=== PATIENT | female | born 1960 | race Caucasian/White ===

== ENCOUNTER 2023-05-21 12:54 | Outpatient (REF) | payer MEDICAID, SELFPAY ==
--- NOTE | ~2023-05-21 | US_ITS ---
EXAMINATION: MM DIAGNOSTIC DIGITAL BREAST TOMOSYNTHESIS, BILATERAL US BREAST LIMITED, LEFT MAMMOGRAPHY: CLINICAL INFORMATION: 62-year-old female, complaining of palpable abnormality LEFT breast approximately 1 inch below nipple. Remote history of benign biopsy left breast. COMPARISON: Mammography: 03/26/2022, 03/22/2021, 06/28/2019, 08/01/2017, and 02/26/2016 ([facility]); 03/15/2021 ([facility]). TECHNIQUE: Digital breast tomosynthesis is performed in both the craniocaudal and mediolateral oblique views along with computer-aided detection (CAD). Synthesized 2D images are generated from the tomosynthesis. FINDINGS: There are scattered areas of fibroglandular density (ACR BI-RADS breast composition Category b). Bilateral retroareolar densities are stable from 2018, and presumably represent duct ectasia. There are no suspicious masses, suspicious grouped calcifications, or areas of architectural distortion in either breast. The parenchymal pattern is stable from prior exams. No skin or axillary abnormality. Area of palpable concern 6:00 to 7:00 axis left breast has been marked by a BB by the technologist with the aid of the patient. There is no underlying mammographic abnormality to correlate with the palpable focus. ULTRASOUND: CLINICAL INFORMATION: Palpable abnormality left breast 1 inch below nipple, 6-7 o'clock axis. COMPARISON: 03/05/2016 left breast ultrasound ([facility]). TECHNIQUE: Targeted left breast sonographic evaluation was performed using a high frequency linear transducer. Attention was given to the 3:00 to the 7:00 axis, and retroareolar region, covering the area of palpable concern. Selected archived documentation. FINDINGS: Both myself and the technologist scanned. LEFT BREAST: There is a mixture of fatty and fibroglandular tissue. No suspicious mass is seen. There is no pathologic acoustic shadowing. There is no cystic abnormality. Previously seen cyst in the 12:00 axis is no longer seen. 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 There is no ultrasonographic abnormality in the region of palpable concern approximately 1 inch below the nipple, nor spanning the 3:00 to 7:00 axes. US/US breast LT limited mamm only IMPRESSION: There is no finding in either breast suspicious for malignancy. The palpable focus of concern in the inferior left breast shows no ultrasonographic or mammographic correlate. Recommend clinical management. 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 OVERALL ASSESSMENT: Mammography: BI-RADS 2 - Benign Findings Ultrasound: BI-RADS 2 - Benign Findings RECOMMENDATION: 1. Patient should be managed based on the clinical impression. Decision to proceed with biopsy should be based on clinical grounds and degree of clinical concern. 2. Otherwise, routine annual screening mammography. Results were discussed with the patient at time of visit. This patient's information was entered into a reminder system with a target due date for their next mammogram.
== END 2023-05-21 12:55 | disposition home or self-care (01) ==
LOC: HO.MAMMO 12:54
PROVIDERS: PCP Hospitalist; Visit Provider Hospitalist
DX: N63.25 Unspecified lump in the left breast, overlapping quadrants (principal)
CPT/HCPCS: 76642; 77062; 77066

== ENCOUNTER → 2023-05-21 13:30 | Outpatient (BNV) | payer MEDICAID, SELFPAY | PROVIDERS: PCP Hospitalist; Visit Provider Radiology Diagnostic Radiology | DX: N63.25 Unspecified lump in the left breast, overlapping quadrants (principal) | CPT/HCPCS: 76642; 77062; 77066 ==

== ENCOUNTER 2024-11-08 13:54 | Outpatient (REF) | payer OTHER, SELFPAY ==
--- OUTSIDE RECORDS SUMMARY | 2024-11-08 14:38 | XMS_ITS | Encounter Summary ---
Author Organization [facility] Address [facility] [address] [place] [phone] Phone Care Team Providers Care Explosive Operator Grenade Name Role Phone Dane Stark MD Primary Care Provider Elda Copeland CNM Unavailable [phone] Le Arredondo HYDROELECTRIC STATION OPERATOR CHIEF Unavailable [phone] Zeke Dee MD Unavailable Mary Alice Webb MD Unavailable Becky Novoa MD Unavailable [phone] Arjun Winters MD Unavailable [phone] Ruthie Kwan NP Primary Care Provider [phone] Wilson Benavidez DO Primary Care Provider Encounter Details Date Type Department Care Team (Late st Contact Info) Description 07/30/2017 Ancillary Orders [facility] External Provider Virtual Department [address] [place] [address] Heidi Goodson, OTR DRIVER [address] [place] [address] [email or web address] Breast screening Social History Tobacco Use Types Packs/Day Years Used Date Smoking Tobacco: Former Smokeless Tobacco: Never Alcohol Use Standard Drinks/Week Comments No 0 (1 standard drink = 0.6 oz pur e alcohol) Comments Unknown Sex and Gender Information Value Date Recorded Sex Assigned at Female 09/11/2019 9:28 AM EDT Legal Sex Female 9:47 PM EDT Gender Identity Not on file Sexual Orientation Choose not to disclose 2019 9:26 AM EDT documented as of this encounter Plan of Treatment Not on file documented as of this encounter Results * BI MAMMOGRAM SCREENING WITH TOMOSYNTHESIS WITH CAD (BILATERAL) (08/01/2017 3:18 PM EDT) Anatomical Region Laterality Modality Breast Left, Breast Right, Breast Bilateral Bila teral Mammography 08/02/2017 8:20 PM EDT Impressions 08/02/2017 8:24 PM EDT No findings suspicious for malignancy are identified. In the absence of a worrisome palpable abnormality, annual screening mammography is recommended. BI-RADS CATEGORY: 2 - Benign finding. DENSITY: There are scattered fibroglandular densities. POS [id number] Narrative 08/02/2017 8:24 PM EDT COMPARISON: 03/02/2007 through 02/26/2016 Bilateral 3-D tomosynthesis with 2-D reconstructions in the CC and MLO projection. Computer-aided detection system also utilized. No new mass, asymmetry, architectural distortion or suspicious calcifications have become apparent on either side. A few scattered punctate calcifications bilaterally are unchanged as are small nodular densities in the subareolar left breast. Procedure Note Jose A Mullins MD - 08/02/2017 COMPARISON: 03/02/2007 through 02/26/2016 Bilateral 3-D tomosynthesis with 2-D reconstructions in the CC and MLOprojection. Computer-aided detection system also utilized. No new mass, asymmetry, architectural distortion or suspiciouscalcifications have become apparent on either side. A few scattered punctate calcifications bilaterally are unchanged as aresmall nodular densities in the subareolar left breast. IMPRESSION: No findings suspicious for malignancy are identified. In the absence of aworrisome palpable abnormality, annual screening mammography isrecommended. BI-RADS CATEGORY: 2 - Benign finding. DENSITY: There are scattered fibroglandular densities. POS CDHMAM2 Heidi Goodson OTR DRIVER IMG MG EXAMS Final Result documented in this encounter Visit Diagnoses Diagnosis Breast screening Breast screening, unspecified Breast screening Breast screening, unspecified documented in this encounter Care Teams Explosive Operator Grenade Relationship Specialty Start Date End Date Dane Stark MD [address] [place] [address] [email or web address] PCP - General 01/27/17 03/11/21 Ruthie Kwan, ADRIANNA [address], [address] [place] [address] PCP - General Family Medicine 03/12/21 03/25/22 Wilson Benavidez DO [address] [place] [address], [address] [place] [address] [email or web address] PCP - General Internal Medicine 03/26/22 Elda Copeland CNM [address] [place] [address] Historical LMR Provider 02/01/17 2 Le Arredondo HYDROELECTRIC STATION OPERATOR CHIEF [address] [place] [address] [email or web address] Historical LMR Provider 02/01/17 04/21/21 Zeke Dee MD [address] [address] [email or web address] Historical LMR Provider 02/01/17 2 Mary Alice Webb MD [address] [place] [address] [email or web address] Historical LMR Provider 02/01/17 Beck[facility] [place] [address] Historical LMR Provider 02/01/17 2 Arjun Winters MD [address] [place] [id number] [email or web address] Historical LMR Provider 02/01/17 04/21/21 documented as of this encounter Additional Source Comments The information contained in this document represents components of the legal health record. It is not the complete legal health record.[facility]
--- OUTSIDE RECORDS SUMMARY | 2024-11-08 14:39 | XMS_ITS | Data Portability ---
Author Organization [place] - [facility] - Start Up, MAIN OFFICE Address [address] [place] [id number] Assessment Encounter Date Assessment Date Assessment LastModified by Organization Details LastModified Time 08/08/2022 08/08/2022 Spent 20 minutes for evaluation and management, including face to face interaction, review of labs and notes from specialist, discussion and coordination of care. Not available 08/08/2022 13:30:47 08/27/2022 08/27/2022 Spent 25 minutes for evaluation and management, including face to face interaction, review of labs and notes from specialist, discussion and coordination of care. Not available 08/27/2022 12:14:46 05/02/2023 05/02/2023 Spent 60 minutes for evaluation and management, including face to face interaction, review of labs and notes from specialist, discussion and coordination of care. Not available 05/05/2023 14:03:03 12/11/2023 12/11/2023 Spent 25 minutes for evaluation and management, including face to face interaction, review of labs and notes from specialist, discussion and coordination of care. Not available 12/11/2023 13:05:18 04/19/2024 04/19/2024 Spent 45 minutes for evaluation and management, including face to face interaction, review of labs and notes from specialist, discussion and coordination of care. Not available 04/19/2024 12:20:13 Plan of Treatment Reminders Order Date Submit Date Provider Last Modified By Organization Details Last Modified Time Details Appointments None recorded. Lab CBC w/ auto diff 2023 024 MASON [facility] (Centralized Electronic Ordering - All Locations), Patient Can Go To The Location Of Their Choice, 4 14:46:06 CMP, serum or plasma 2023 024 MASON [facility] (Centralized Electronic Ordering - All Locations), Patient Can Go To The Location Of Their Choice, 4 15:30:32 TSH, serum or plasma 2023 024 MASON [facility] (Centralized Electronic Ordering - All Locations), Patient Can Go To The Location Of Their Choice, 4 15:41:13 lipid panel, blood 2023 024 MASON [facility] (Centralized Electronic Ordering - All Locations), Patient Can Go To The Location Of Their Choice, 4 15:30:33 fecal occult blood, stool 2023 024 MASON [facility] (Centralized Electronic Ordering - All Locations), Patient Can Go To The Location Of Their Choice, 09:36:35 Referral vascular surgeon referral - Former smoker smoker from age 14 to age 33 but has not smoked for 30 years now H/o ETOH abuse has been sober since 2021 H/o Raynaud which was managed on low dose Amlodapine. 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 Needs to see derm and have the inclusion sac removed 2023 024 MASON Nichols MD, [address], [place], [address], 5 05:02:20 otolaryngol ogist referral - Vertigo and tinnitus since 2017 Since 2017 has had vertigo since 2017 But now it is worse in the past 6 months. Has had Tinnitus since then as well No hearing loss. Feels more heaviness on the L Has had h/o migraines When vertigo happens she tries to keep her eyes in one spot and it resolves. Takes OTC Dramamine as needed. Never had it worked up. 2023 024 [facility], [address] [facility], [place], [address], 4 05:01:30 Procedures None recorded. Surgeries None recorded. Imaging US, breast - New Left breast lump 2023 024 [facility], [address] [place] [address], [id number], 4 05:01:28 MAMMO, diagnostic, digital, bilateral - New L breast lump noted during annual exam 2023 024 [facility], [address] [place] [address], [id number], 4 05:01:28 MAMMO, diagnostic, digital, bilateral - 3x1 cm in L breast noted during annual exam Has had h/o cysts in the past No fhx of breast cancer 2023 024 [facility], [address] [place] [address], [address], 4 05:01:28 Medication Orders nifedipine ER 30 mg tablet,exte nded release 2024 025 [facility]/Pharmacy #2024, [address] [place], [address], 5 12:21:46 oxycodone 5 mg tablet 2024 025 [facility]/Pharmacy #2024, [address] [place], [address], 5 12:21:50 nifedipine ER 30 mg tablet,exte nded release 2024 025 srastegar 1 [facility]/Pharmacy #2024, [address] [place], [address], 5 10:50:10 Silvadene 1 % topical cream 2024 025 [facility]/Pharmacy #2024, [address] [place], [address], 5 12:29:13 mupirocin 2 % topical ointment 2023 024 [facility]/Pharmacy #2024, [address] [place], [address], 4 13:07:56 Debrox 6.5 % ear drops 2023 024 [facility]/Pharmacy #2024, [address] [place], [address], 4 11:38:16 Prozac 10 mg capsule 2022 023 [facility]/Pharmacy #2024, [address] [place], [address], 3 13:47:59 Patient TargetsNo targets recorded. Patient Instructions Encounter Date Encounter Id Patient Instructions Last Modified By Organization Details Last Modified Time 05/02/2023 [id number] breast lumps: care instructions Not available 05/05/2023 14:04:59 Patient Health Questionnaire-9* - scored 4 MASON Not available 05/02/2024 05:01:01 Reason for Referral [employer] Feeder Referral fo r Vertigo Vertigo and tinnitus since 2017Since 2017 has had vertigo since 2017But now it is worse in the past 6 months.Has had Tinnitus since then as wellNo hearing loss.Feels more heaviness on the LHas had h/o migraines When vertigo happens she tries to keep her eyes in one spot and it resolves.Takes OTC Dramamine as needed. Never had it worked up. 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 has had a brown spot for years now has a pearly flaky center for the past 2 weeksNo change with lotion applicationShe hit it on the car door and now has bruise around itWill refer to derm for possible BCCAlso Has had a bump on mons pubis for 2-3 monthswas draining some thick whitish dischargeMost likely dermoid cyst.Needs to see derm and have the inclusion sac removed Referring Physician: Wilson Benavidez, Internal Medicine, Encounter Date: 12/11/2023 Vascular Surgeon Referral fo r 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 Referring Physician: Wilson Benavidez, Internal Medicine, Encounter Date: 04/19/2024 Results Created Date Observation Date Name Description Value Unit Range Abnormal Flag Note LastModifiedBy Organization Detail LastModifiedTime 05/09/19 24 05/09/2023 FECAL OCCUL T BLOOD , IMMUN OCHEM ICAL results Test Cance lled, food service order clerk error Not Available [facility] (Centralized Electronic Ordering - All Locations) Patient Can Go To The Location Of Their Choice, 05/09/2023 09:36:35 05/09/1905/09/2023 COMPL ETE CBC WITH DIFF WBC 4.5 K/mm3 (4.0-1 1.0) Not Available [facility] (Centralized Electronic Ordering - All Locations) Patient Can Go To The Location Of Their Choice, 05/09/2023 14:46:06 05/09/1905/09/2023 COMPL ETE CBC WITH DIFF RBC 4.06 M/mm3 (4.20- 5.40) low Not Available [facility] (Centralized Electronic Ordering - All Locations) Patient Can Go To The Location Of Their Choice, 05/09/2023 14:46:05/09/1905/09/2023 COMPL ETE CBC WITH DIFF HGB 12.2 gm/dL (11.7- 15.5) Not Available [facility] (Centralized Electronic Ordering - All Locations) Patient Can Go To The Location Of Their Choice, 05/09/2023 14:46:06 05/09/1905/09/2023 COMPL ETE CBC WITH DIFF HCT 37.7 % (35.7- 45.8) Not Available [facility] (Centralized Electronic Ordering - All Locations) Patient Can Go To The Location Of Their Choice, 05/09/2023 14:46:06 05/09/1905/09/2023 COMPL ETE CBC WITH DIFF MCV 92.9 fL (80.0- 100.0) Not Available [facility] (Centralized Electronic Ordering - All Locations) Patient Can Go To The Location Of Their Choice, 05/09/2023 14:46:06 05/09/1905/09/2023 COMPL ETE CBC WITH DIFF MCH 30.0 pg (27.0- 34.0) Not Available [facility] (Centralized Electronic Ordering - All Locations) Patient Can Go To The Location Of Their Choice, 05/09/2023 14:46:06 05/09/1905/09/2023 COMPL ETE CBC WITH DIFF MCHC 32.4 g/dL (33.0- 37.0) low Not Available [facility] (Centralized Electronic Ordering - All Locations) Patient Can Go To The Location Of Their Choice, 05/09/2023 14:46:05/09/1905/09/2023 COMPL ETE CBC WITH DIFF plt 293 K/mm3 (150-4 60) Not Available [facility] (Centralized Electronic Ordering - All Locations) Patient Can Go To The Location Of Their Choice, 05/09/2023 14:46:05/09/1905/09/2023 COMPL ETE CBC WITH DIFF RDW-SD 42.2 fL (<47.0 ) Not Available [facility] (Centralized Electronic Ordering - All Locations) Patient Can Go To The Location Of Their Choice, 05/09/2023 14:46:05/09/1905/09/2023 COMPL ETE CBC WITH DIFF MPV 10.3 fL (9.4-1 2.4) Not Available [facility] (Centralized Electronic Ordering - All Locations) Patient Can Go To The Location Of Their Choice, 05/09/2023 14:46:05/09/1905/09/2023 COMPL ETE CBC WITH DIFF automated NRBC 0.0 #/100 _WBC' s Not Available [facility] (Centralized Electronic Ordering - All Locations) Patient Can Go To The Location Of Their Choice, 05/09/2023 14:46:05/09/1905/09/2023 COMPL ETE CBC WITH DIFF abs. NRBC 0.0 K/mm3 Not Available [facility] (Centralized Electronic Ordering - All Locations) Patient Can Go To The Location Of Their Choice, 05/09/2023 14:46:05/09/1905/09/2023 COMPL ETE CBC WITH DIFF neut # 2.2 K/mm3 (1.3-7 .0) Not Available [facility] (Centralized Electronic Ordering - All Locations) Patient Can Go To The Location Of Their Choice, 05/09/2023 14:46:05/09/1905/09/2023 COMPL ETE CBC WITH DIFF lymph # 2.0 K/mm3 (0.8-3 .1) Not Available [facility] (Centralized Electronic Ordering - All Locations) Patient Can Go To The Location Of Their Choice, 05/09/2023 14:46:06 05/09/19 24 05/09/2023 COMPL ETE CBC WITH DIFF mono# 0.2 K/mm3 (0.4-0 .9) low Not Available [facility] (Centralized Electronic Ordering - All Locations) Patient Can Go To The Location Of Their Choice, 05/09/2023 14:46:06 05/09/19 24 05/09/2023 COMPL ETE CBC WITH DIFF eo # 0.0 K/mm3 (0.0-0 .4) Not Available [facility] (Centralized Electronic Ordering - All Locations) Patient Can Go To The Location Of Their Choice, 05/09/2023 14:46:05/09/1905/09/2023 COMPL ETE CBC WITH DIFF baso # 0.0 K/mm3 (0.0-0 .1) Not Available [facility] (Centralized Electronic Ordering - All Locations) Patient Can Go To The Location Of Their Choice, 05/09/2023 14:46:05/09/1905/09/2023 COMPL ETE CBC WITH DIFF abs. imm gran 0.0 K/mm3 Not Available [facility] (Central[facility] Ordering - All Locations) Patient Can Go To The Location Of Their Choice, 05/09/2023 14:46:05/09/19 24 05/09/2023 COMPL ETE CBC WITH DIFF neut 49.4 % (44-76 ) Not Available [facility] (Centralized Electronic Ordering - All Locations) Patient Can Go To The Location Of Their Choice, 05/09/2023 14:46:05/09/1905/09/2023 COMPL ETE CBC WITH DIFF lymph 43.7 % (15-43 ) high Not Available [facility] (Centralized Electronic Ordering - All Locations) Patient Can Go To The Location Of Their Choice, 05/09/2023 14:46:05/09/1905/09/2023 COMPL ETE CBC WITH DIFF monocyte 5.1 % (4.5-1 0.5) Not Available [facility] (Centralized Electronic Ordering - All Locations) Patient Can Go To The Location Of Their Choice, 05/09/2023 14:46:05/09/1905/09/2023 COMPL ETE CBC WITH DIFF eo 0.7 % (0-6) Not Available [facility] (Centralized Electronic Ordering - All Locations) Patient Can Go To The Location Of Their Choice, 05/09/2023 14:46:06 05/09/1905/09/2023 COMPL ETE CBC WITH DIFF baso 0.9 % (0-2) Not Available [facility] (Centralized Electronic Ordering - All Locations) Patient Can Go To The Location Of Their Choice, 05/09/2023 14:46:06 05/09/1905/09/2023 COMPL ETE CBC WITH DIFF imm gran 0.2 % Not Available [facility] (Centralized Electronic Ordering - All Locations) Patient Can Go To The Location Of Their Choice, 05/09/2023 14:46:06 05/09/1905/09/2023 COMPR EHENS REGINE METAB OLIC PANL glucose 87 mg/dL (70-99 ) Not Available [facility] (Centralized Electronic Ordering - All Locations) Patient Can Go To The Location Of Their Choice, 05/09/2023 15:30:32 05/09/19 24 05/09/2023 COMPR EHENS REGINE METAB OLIC PANL BUN 16 mg/dL (8-23) Not Available [facility] (Centralized Electronic Ordering - All Locations) Patient Can Go To The Location Of Their Choice, 05/09/2023 15:30:32 05/09/19 24 05/09/2023 COMPR EHENS REGINE METAB OLIC PANL creatinine 0.9 mg/dL (0.5-1 .0) Not Available [facility] (Centralized Electronic Ordering - All Locations) Patient Can Go To The Location Of Their Choice, 05/09/2023 15:30:32 05/09/1905/09/2023 COMPR EHENS REGINE METAB OLIC PANL sodium 139 mmol/ L (133-1 45) Not Available [facility] (Centralized Electronic Ordering - All Locations) Patient Can Go To The Location Of Their Choice, 05/09/2023 15:30:32 05/09/1905/09/2023 COMPR EHENS REGINE METAB OLIC PANL potassium 4.7 mmol/ L (3.6-5 .2) Not Available [facility] (Centralized Electronic Ordering - All Locations) Patient Can Go To The Location Of Their Choice, 05/09/2023 15:30:32 05/09/1905/09/2023 COMPR EHENS REGINE METAB OLIC PANL chloride 103 mmol/ L (98-10 7) Not Available [facility] (Centralized Electronic Ordering - All Locations) Patient Can Go To The Location Of Their Choice, 05/09/2023 15:30:32 05/09/1905/09/2023 COMPR EHENS REGINE METAB OLIC PANL bicarbonate 28 mmol/ L (22-29 ) Not Available [facility] (Centralized Electronic Ordering - All Locations) Patient Can Go To The Location Of Their Choice, 05/09/2023 15:30:32 05/09/1905/09/2023 COMPR EHENS REGINE METAB OLIC PANL anion gap 8 (4-17) Not Available [facility] (Centralized Electronic Ordering - All Locations) Patient Can Go To The Location Of Their Choice, 05/09/2023 15:30:32 05/09/1905/09/2023 COMPR EHENS REGINE METAB OLIC PANL albumin 4.3 gm/dL (3.4-4 .8) Not Available [facility] (Centralized Electronic Ordering - All Locations) Patient Can Go To The Location Of Their Choice, 05/09/2023 15:30:32 05/09/19 24 05/09/2023 COMPR EHENS REGINE METAB OLIC PANL calcium 9.5 mg/dL (8.6-1 0.5) Not Available [facility] (Centralized Electronic Ordering - All Locations) Patient Can Go To The Location Of Their Choice, 05/09/2023 15:30:32 05/09/1905/09/2023 COMPR EHENS REGINE METAB OLIC PANL bilirubin,to chelita 0.4 mg/dL (0-1.2 ) Not Available [facility] (Centralized Electronic Ordering - All Locations) Patient Can Go To The Location Of Their Choice, 05/09/2023 15:30:32 05/09/19 24 05/09/2023 COMPR EHENS REGINE METAB OLIC PANL total protein 6.8 gm/dL (6.2-8 .2) Not Available [facility] (Centralized Electronic Ordering - All Locations) Patient Can Go To The Location Of Their Choice, 05/09/2023 15:30:32 05/09/1905/09/2023 COMPR EHENS REGINE METAB OLIC PANL Ag ratio 1.7 Not Available [facility] (Centralized Electronic Ordering - All Locations) Patient Can Go To The Location Of Their Choice, 05/09/2023 15:30:32 05/09/19 24 05/09/2023 COMPR EHENS REGINE METAB OLIC PANL AST 20 U/L (0-32) Not Available [facility] (Centralized Electronic Ordering - All Locations) Patient Can Go To The Location Of Their Choice, 05/09/2023 15:30:32 05/09/19 24 05/09/2023 COMPR EHENS REGINE METAB OLIC PANL alk phos 79 U/L (35-10 4) Not Available [facility] (Centralized Electronic Ordering - All Locations) Patient Can Go To The Location Of Their Choice, 05/09/2023 15:30:32 05/09/1905/09/2023 COMPR EHENS REGINE METAB OLIC PANL ALT 21 U/L (0-33) Not Available [facility] (Centralized Electronic Ordering - All Locations) Patient Can Go To The Location Of Their Choice, 05/09/2023 15:30:32 05/09/1905/09/2023 COMPR EHENS REGINE METAB OLIC PANL estimated GFR creatinine 71 mL/mi n/1.7 3_M2 Creat inine based estim ated glome rular filtr ation (eGFR ) in adult s is calcu lated using the Natio nal Kidne y Found ation recom alex d 2020 CKD-E PI equat ion. Estim ates GFR from serum creat inine , age and sex. Not Available [facility] (Centralized Electronic Ordering - All Locations) Patient Can Go To The Location Of Their Choice, 05/09/2023 15:30:32 05/09/1905/09/2023 LIPID PANEL W REFLE X TO DLDL cholesterol, total 231 mg/dL (<200) high Not Available [facility] ([facility] Order[facility] - All Locations) Patient Can Go To The Location Of Their Choice, 05/09/2023 15:30:33 05/09/19 24 05/09/2023 LIPID PANEL W REFLE X TO DLDL triglyceride s 74 mg/dL (<150) Not Available [facility] ([facility]ized [facility] Ordering - All Locations) Patient Can Go To The Location Of Their Choice, 05/09/2023 15:30:33 05/09/19 24 05/09/2023 LIPID PANEL W REFLE X TO DLDL HDL chol 88 mg/dL (>39) Not Available [facility] (Centralized Electronic Ordering - All Locations) Patient Can Go To The Location Of Their Choice, 05/09/2023 15:30:33 05/09/19 24 05/09/2023 LIPID PANEL W REFLE X TO DLDL LDL cholesterol, calculated 128 mg/dL (0-130 ) Not Available [facility] (Centralized Electronic Ordering - All Locations) Patient Can Go To The Location Of Their Choice, 05/09/2023 15:30:33 05/09/1905/09/2023 LIPID PANEL W REFLE X TO DLDL non HDL cholesterol (calc) 143 mg/dL (<160) Not Available [facility] (Centralized Electronic Ordering - All Locations) Patient Can Go To The Location Of Their Choice, 05/09/2023 15:30:33 05/09/1905/09/2023 LIPID PANEL W REFLE X TO DLDL cholesterol/ HDL ratio (calc) 2.6 (<5.0) Refer ence range for child gely have not been well estab meenahe d. Adult refer ence range is equal or less than 5 Not Available [facility] (Centralized Electronic Ordering - All Locations) Patient Can Go To The Location Of Their Choice, 05/09/2023 15:30:33 05/09/1905/09/2023 TSH WITH REFLE X TO FT4 TSH 1.98 uIU/m L (0.4-4 .2) Not Available [facility] (Centralized Electronic Ordering - All Locations) Patient Can Go To The Location Of Their Choice, 05/09/2023 15:41:13 05/13/19 24 05/14/2023 FECAL OCCUL T BLOOD , IMMUN OCHEM ICAL fecal occult blood, immunochem NEGATI VE (neg) Not Available [facility] (Centralized Electronic Ordering - All Locations) Patient Can Go To The Location Of Their Choice, [id number] 05/14/2023 13:05:03 05/21/19 24 05/21/2023 imagi ng/di agnos tic resul t No observ ation record ed. [address] - Outpatient Radiology [address] [place] [address] [place], [id number], 03/02/2024 09:52:09 05/21/19 24 05/21/2023 imagi ng/di agnos tic resul t No observ ation record ed. [address] 30 [facility], [place], [id number], 03/02/2024 09:52:10 Result Notes None recorded. Problems Name Problem SNOMED Code Status Onset Date Resolution Date Notes Provider Name and Address Organization Details Recorded Time Bipolar disorder [id number] Active 022 Wilson Benavidez DO [address] [facility] [address], [place], [address] , [facility] - [facility] 09:08:54 Problem Notes None recorded. Medical Equipment None Reported. Medications Name Sig Start Date Stop Date Status Note LastModified by Organization Details LastModified Time Prescriptio n - Renewal active Not Available Not Available Not Available silver sulfadiazin e 1 % topical cream APPLY A 1/16 INCH (1.5 MM) THICK LAYER TO ENTIRE BURN AREA BY TOPICALRO AKUTAN 2 TIMES PER DAY active Not Available Not Available No t Available prednisone 10 mg tablet TAKE 1 TABLET BY MOUTH EVERY DAY WITH MEALS active Not Available Not Available No t Available citalopram 10 mg tablet TAKE 1 TABLET BY MOUTH EVERY DAY IN THE MORNING 04/19 completed Not Available Not Available Not Available clonazepam 0.5 mg tablet TAKE 1 TABLET BY MOUTH EVERYDAY AT BEDTIME active Not Available Not Available No t Available Seroquel 25 mg tablet Take 1 tablet(s) every day by oral route. 04/19 completed Not Available Not Available Not Available Debrox 6.5 % ear drops INSTILL 5 DROPS INTO AFFECTED EAR(S) BY OTIC ROUTE 2 TIMES PER DAY 2023 active Not Available Not Available Not Avai lable nifedipine ER 30 mg tablet,exte nded release Take 1 tablet(s) every day by oral route. active Not Available Not Available No t Available amlodipine 5 mg tablet TAKE 1 TABLET BY MOUTH EVERY DAY active Not Available Not Available No t Available valacyclovi r 500 mg tablet TAKE 1 TABLET BY MOUTH EVERY DAY active Not Available Not Available No t Available divalproex ER 500 mg tablet,exte nded release 24 hr TAKE 1 TABLET BY MOUTH EVERYDAY AT BEDTIME 04/19 completed Not Available Not Available Not Available bupropion HCl 75 mg tablet TAKE 1 TABLET BY MOUTH EVERY DAY IN THE MORNING 04/19 completed Not Available Not Available Not Available fluoxetine 10 mg capsule TAKE 1 CAPSULE BY MOUTH EVERY MORNING FOR TOTAL DAILY DOSE OF 30 MG active Not Available Not Available No t Available omeprazole 20 mg capsule,del ayed release TAKE 1 CAPSULE BY MOUTH EVERY DAY active Not Available Not Available No t Available mupirocin 2 % topical ointment APPLY A SMALL AMOUNT TO THE AFFECTED AREA BY TOPICAL ROUTE 3 TIMES PER DAY 7-10 DAYS active Not Available Not Available No t Available fluoxetine 20 mg capsule TAKE 1 CAPSULE BY MOUTH EVERY MORNING PART OF A TDD OF 30 MG active Not Available Not Available No t Available oxycodone 5 mg tablet Take 1 tablet 6 times a day by oral route. 2024 active Not Available Not Available Not Avai lable divalproex ER 250 mg tablet,exte nded release 24 hr TAKE 1 TABLET BY MOUTH EVERYDAY AT BEDTIME 04/19 completed Not Available Not Available Not Available bupropion HCl XL 150 mg 24 hr tablet, extended release TAKE 1 TABLET BY MOUTH EVERY DAY IN THE MORNING 04/19 completed Not Available Not Available Not Available quetiapine 50 mg tablet TAKE 1 TABLET BY MOUTH EVERY DAY 04/19 completed Not Available Not Available Not Available Pristiq 50 mg tablet,exte nded release TAKE 1 TABLET BY MOUTH EVERY MORNING WITH A MEAL 04/19 completed Not Available Not Available Not Available Flowflex COVID-19 Antigen Home Test kit USE DIRECTED active Not Available Not Available No t Available Vitals Date Recorded Body height Heart rate Respiratory rate Body mass index (BMI) Body weight Oxygen saturation Oxygen saturation in Arterial blood by Pulse oximetry Systolic And Diastolic Provider Name and Address Organization Details Last Updated DateTime 3 165.1 cm 70 /min 12 /min 21.6 kg/m2 74424.0 1 g 99 % 99 % 125/70 mm[Hg] Wilson Benavidez DO [address], [place], [address], [place] - [facility] 3 13:36:27 Social History Question Answer Notes LastModified by Organizat ion Details LastModified Time Tobacco Smoking Status Never Smoker Wilson Benavidez DO [address], [place], [address], [place] - [facility] 12/03/2021 11:41:22 What Type Of Diet Are You Following? REGULAR Information not available 12/03/2021 Do You Use Protection Against STDs? No Information not available 12/03/2021 What Is Your Relationship Status? For The 15 Years. Information not available 12/03/2021 Do You Use Your Seat Belt Or Car Seat Routinely? Yes Information not available 12/03/2021 Are You Sexually Active? Yes Information not available 12/03/2021 Do You Participate In Social Media? No Information not available 12/03/2021 Are You Currently In School? No Information not available 12/03/2021 Sex: Unknown Functional Status Question Answer Note LastModified by Organizat ion Details LastModified Time What is your level of alcohol consumption? 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 Information not available 05/02/2023 What is your exercise level? Occasional Information not available 12/03/2021 Mental Status Question Answer Note LastModified by Organizat ion Details LastModified Time Do you feel stressed (tense, restless, nervous, or anxious, or unable to sleep at night)? [id number] in hypomanic state Information not available 12/03/2021 Family History Relationship Description Onset Age of this Age Resolved Age Notes LastModified by Organization Details LastModified Time Father Alcoholism Not avail able 12/03/2021 11:14:35 Medical History No medical history recorded. Gynecological HistoryNo gynecological history recorded. Obstetrics History GPAL:G 0 P 0 0 0 0 Past Encounters Encounter ID Performer Location Encounter Start Date Encounter Closed Date Diagnosis/Indication Diagnosis SNOMED-CT Code Diagnosis ICD10 Code Diagnosis Note [id number] Wilson Benavidez DO MAIN OFFICE [address] [place] [address] 12/03/2021 10:52:21 12/13/2021 16:53:46 Bipolar disorder 72152938 F31.9 She feels hypomanic which she finds helpful in her new business. However, she is worries about the ensuing depression . Reports some overspendi ng and poor sleep.Her psychiatri st does not accept her insurance and she has to find a new psych provider.S he is currently on clonazapam 0.5mg which she is concerned makes her drowsy and might lead to dementia in the future.The only mood stabilizer she has tried was lithium which caused fatigue and brain fog.Will start seroquel low dose.pt to slowly taper and stop clonazepam and reserve that for episodes of aileen and insomnia.W ill try to bridge the pt till she can be seen by psych which is difficult to find.She has responded well to prozac for 2 years during a cycle of depression but later on started having chest palpitatio n and possible anxiety.pt has a few friends whom she can relay on and talk about her issues.She has a therapist whom she finds helpful.No SI or HIPt to start seroquel at 25mg at night and monitor her response and increase the dose as tolerated. She feels exercise helps, as well as yoga and meditation .Daily walks in the am sunStart probiotics specifical ly geared to brain gut access.Col lagen in am.takes Mag at night.Emph asized enough sleep specially during manic phase. Raynaud's phenomenon [id number] I73.00 tingling sensation in the feet specially in winter, has improvedla bs as above [id number] Wilson Benavidez DO MAIN OFFICE [address] [place] [address] 12/21/2021 13:00:11 12/24/2021 08:54:52 Bipolar disorder [id number] F31.9 12/21/21she has not started seroquel yet since she wants to have the energy to work. urged her to tx the aileen since it is followed by prolonged depression .pt to start at 25mg at night and stop the use if causes sever anxiety or depression discussed starting depakote and risperidon e and she will research [place] is actively looking for a psychiatri st. 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 However, she is worries about the ensuing depression . Reports some overspendi ng and poor sleep.Her psychiatri st does not accept her insurance and she has to find a new psych provider.S he is currently on clonazapam 0.5mg which she is concerned makes her drowsy and might lead to dementia in the future.The only mood stabilizer she has tried was lithium which caused fatigue and brain fog.Will start seroquel low dose.pt to slowly taper and stop clonazepam and reserve that for episodes of aileen and insomnia.W ill try to bridge the pt till she can be seen by psych which is difficult to find.She has responded well to prozac for 2 years during a cycle of depression but later on started having chest palpitatio n and possible anxiety.pt has a few friends whom she can relay on and talk about her issues.She has a therapist whom she finds helpful.No SI or HIPt to start seroquel at 25mg at night and monitor her response and increase the dose as tolerated. She feels exercise helps, as well as yoga and meditation .Daily walks in the am sunStart probiotics specifical ly geared to brain gut access.Col lagen in am.takes Mag at night.Emph asized enough sleep specially during manic phase. Disorder of vitamin D [id number] E55.9 elevated level 83was taking vitd3 5000 units dailypt to stop for Vit D supplement for 2 weeksand then start at recommende d dose of every 3rd day. [id number] Wilson Benavidez DO MAIN OFFICE [address] [place], [place] [address] 02/26/2022 11:53:52 03/01/2022 14:51:18 Bipolar disorder [id number] F31.9 02/26/22 ill very hyper. Had relapse of her alcoholism and did some binge drinking.W ill start depakote. will need to check labs in 2 weeks after start of the medIs going back to AA.cont seroquel low dose at night. 9/9/22collin has not started seroquel yet since she wants to have the energy to work. urged her to tx the aileen since it is followed by prolonged depression .pt to start at 25mg at night and stop the use if causes sever anxiety or depression discussed starting depakote and risperidon e and she will research thatcollin is actively looking for a psychiatri st. 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 However, she is worries about the ensuing depression . Reports some overspendi ng and poor sleep.Her psychiatri st does not accept her insurance and she has to find a new psych provider.S he is currently on clonazapam 0.5mg which she is concerned makes her drowsy and might lead to dementia in the future.The only mood stabilizer she has tried was lithium which caused fatigue and brain fog.Will start seroquel low dose.pt to slowly taper and stop clonazepam and reserve that for episodes of aileen and insomnia.W ill try to bridge the pt till she can be seen by psych which is difficult to find.She has responded well to prozac for 2 years during a cycle of depression but later on started having chest palpitatio n and possible anxiety.pt has a few friends whom she can relay on and talk about her issues.She has a therapist whom she finds helpful.No SI or HIPt to start seroquel at 25mg at night and monitor her response and increase the dose as tolerated. She feels exercise helps, as well as yoga and meditation .Daily walks in the am sunStart probiotics specifical ly geared to brain gut access.Col lagen in am.takes Mag at night.Emph asized enough sleep specially during manic phase. 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 Pain of le ft knee joint [id number] 02098 M25.562 ACL tear years ago as ski injury.pro longed walk causes paindid PT which was helpfulNow is giving out and has more instabilit y.xray and referral to ortho and sports medicineAd vised pt to avoid activities that cause pain such long walks and climbingsw imming, short walks and biking wont cause pain and she should cont those.Advi sed anti-infla mmatory diet (no gluten or alcohol, start probiotic, collagen, and turmeric) Screening mammography [id number] Z12.31 sent for mammo [id number] Wilson Benavidez DO MAIN OFFICE [address] [facility] [address] [place] [address] 03/12/2022 10:42:02 04/01/2022 12:55:41 Low back pain [id number] M54.50 Chronic back pain but now its is worseSpeci ally at nightShe has not bee able to see the orthopedic for her L knee pain andAdvised anti-infla mmatory diet (no gluten, probiotic, collagen, and turmeric)T FL release recommende d.No focal neuro deficitNo fever or chills.no bowel or bladder issues.Sim ple exercises were recommende d.pt to take mag and calciumBut most likely issues is related to her knee instabilit y which she needs to see ortho for.Will obtain xray of L spine and sacrum.If no improvemen t with these measures will refer to spine surgeon Bipolar disorder [id number] F31.9 03/13/22Re sponding well to DepakotHow ever feels she might need increase in dose.labs were reviewed and are stable. 02/26/22 ill very hyper. Had relapse of her alcoholism and did some binge drinking.W ill start depakote. will need to check labs in 2 weeks after start of the medIs going back to AA.cont seroquel low dose at night. 12/21/21collin has not started seroquel yet since she wants to have the energy to work. urged her to tx the aileen since it is followed by prolonged depression .pt to start at 25mg at night and stop the use if causes sever anxiety or depression discussed starting depakote and risperidon e and she will research thatcollin is actively looking for a psychiatri st. 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 However, she is worries about the ensuing depression . Reports some overspendi ng and poor sleep.Her psychiatri st does not accept her insurance and she has to find a new psych provider.S he is currently on clonazapam 0.5mg which she is concerned makes her drowsy and might lead to dementia in the future.The only mood stabilizer she has tried was lithium which caused fatigue and brain fog.Will start seroquel low dose.pt to slowly taper and stop clonazepam and reserve that for episodes of aileen and insomnia.W ill try to bridge the pt till she can be seen by psych which is difficult to find.She has responded well to prozac for 2 years during a cycle of depression but later on started having chest palpitatio n and possible anxiety.pt has a few friends whom she can relay on and talk about her issues.She has a therapist whom she finds helpful.No SI or HIPt to start seroquel at 25mg at night and monitor her response and increase the dose as tolerated. She feels exercise helps, as well as yoga and meditation .Daily walks in the am sunStart probiotics specifical ly geared to brain gut access.Col lagen in am.takes Mag at night.Emph asized enough sleep specially during manic phase. [id number] Wilson Benavidez DO MAIN OFFICE [address] [facility] [address] [place] [address] 05/01/2022 12:02:08 06/05/2022 14:05:00 Low back pain [id number] M54.50 worsening of pain since since Xray of spine and L knee--in Mar No spondyloli sthesis. Vertebral body heights are maintained . Moderate degenerati ve disc disease at L4-L5. Mild facet arthropath y, most notable in the lower lumbar spine. Mild degenerati ve change of both sacroiliac joints. Diffuse osseous deminerali zation. Sacrum is obscured.A dvised anti-infla mmatory diet (no gluten or ETOH, start probiotic, collagen, and turmeric)s itting makes it worseSo she tries to stand and stretch and certain exercises help.she will text if she wants to see PTLeft knee: No fracture or dislocatio n. Joint spaces are preserved. No substantia l joint effusion.l abs as belowAdvis ed anti-infla mmatory diet (little gluten or alcohol. start probiotic, collagen) Chronic back pain but now its is worseSpeci ally at nightShe has not bee able to see the orthopedic for her L knee pain andAdvised anti-infla mmatory diet (no gluten, probiotic, collagen, and turmeric)T FL release recommende d.No focal neuro deficitNo fever or chills.no bowel or bladder issues.Sim ple exercises were recommende d.pt to take mag and calciumBut most likely issues is related to her knee instabilit y which she needs to see ortho for.Will obtain xray of L spine and sacrum.If no improvemen t with these measures will refer to spine surgeon Bipolar disorder [id number] F31.9 05/01/22fee ling great on depakoteWi ll check LFTsRespondi ng well to DepakotHow ever feels she might need increase in dose.labs were reviewed and are stable. 02/26/22St ill very hyper. Had relapse of her alcoholism and did some binge drinking.W ill start depakote. will need to check labs in 2 weeks after start of the medIs going back to AA.cont seroquel low dose at night. 12/21/21collin has not started seroquel yet since she wants to have the energy to work. urged her to tx the aileen since it is followed by prolonged depression .pt to start at 25mg at night and stop the use if causes sever anxiety or depression discussed starting depakote and risperidon e and she will research thatcollin is actively looking for a psychiatri st. 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 However, she is worries about the ensuing depression . Reports some overspendi ng and poor sleep.Her psychiatri st does not accept her insurance and she has to find a new psych provider.S he is currently on clonazapam 0.5mg which she is concerned makes her drowsy and might lead to dementia in the future.The only mood stabilizer she has tried was lithium which caused fatigue and brain fog.Will start seroquel low dose.pt to slowly taper and stop clonazepam and reserve that for episodes of aileen and insomnia.W ill try to bridge the pt till she can be seen by psych which is difficult to find.She has responded well to prozac for 2 years during a cycle of depression but later on started having chest palpitatio n and possible anxiety.pt has a few friends whom she can relay on and talk about her issues.She has a therapist whom she finds helpful.No SI or HIPt to start seroquel at 25mg at night and monitor her response and increase the dose as tolerated. She feels exercise helps, as well as yoga and meditation .Daily walks in the am sunStart probiotics specifical ly geared to brain gut access.Col lagen in am.takes Mag at night.Emph asized enough sleep specially during manic phase. Postmenopa usal osteopenia [id number] M85.80 Since her chronic pain is worse will get DEXA Pain of le ft knee joint [id number] 52414 M25.562 ACL tear years ago as ski injury.pro longed walk causes paindid PT which was helpfulNow is giving out and has more instabilit y.xray and referral to ortho and sports medicineAd vised pt to avoid activities that cause pain such long walks and climbingsw imming, short walks and biking wont cause pain and she should cont those.Advi sed anti-infla mmatory diet (no gluten or alcohol, start probiotic, collagen, and turmeric) [id number] Wilson Benavidez DO MAIN OFFICE [address] [facility] [address] [place] [address] 06/13/2022 11:03:37 06/17/2022 11:59:41 Bipolar disorder [id number] F31.9 06/13/22Repo rts some depression after COVIDDepak ote 500mg x1 dailyWante d to come off of it since she thought the depression was due to depakote.E xplained to her that her depression would get worse off the meds and she agreed to stay on it.she is on wait list to see psychDenie s SI or [facility]articip ate [facility] and if depression doesn't resolved then will start meds.F/u in 2 weeks 05/01/22fee ling great on depakoteWi ll check LFTsRespondi ng well to DepakotHow ever feels she might need increase in dose.labs were reviewed and are stable. 02/26/22St ill very hyper. Had relapse of her alcoholism and did some binge drinking.W ill start depakote. will need to check labs in 2 weeks after start of the medIs going back to .cont seroquel low dose at night. 12/21/21she has not started seroquel yet since she wants to have the energy to work. urged her to tx the aileen since it is followed by prolonged depression .pt to start at 25mg at night and stop the use if causes sever anxiety or depression discussed starting depakote and risperidon e and she will research [place]sh[place] is actively looking for a psychiatri st. 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 However, she is worries about the ensuing depression . Reports some overspendi ng and poor sleep.Her psychiatri st does not accept her insurance and she has to find a new psych provider.S he is currently on clonazapam 0.5mg which she is concerned makes her drowsy and might lead to dementia in the future.The only mood stabilizer she has tried was lithium which caused fatigue and brain fog.Will start seroquel low dose.pt to slowly taper and stop clonazepam and reserve that for episodes of aileen and insomnia.W ill try to bridge the pt till she can be seen by psych which is difficult to find.She has responded well to prozac for 2 years during a cycle of depression but later on started having chest palpitatio n and possible anxiety.pt has a few friends whom she can relay on and talk about her issues.She has a therapist whom she finds helpful.No SI or HIPt to start seroquel at 25mg at night and monitor her response and increase the dose as tolerated. She feels exercise helps, as well as yoga and meditation .Daily walks in the am sunStart probiotics specifical ly geared to brain gut access.Col lagen in am.takes Mag at night.Emph asized enough sleep specially during manic phase. Post-acute COVID-19 1119 [id number] U09.9 Brain fog, pressure in sinusesfat igue and depression .Had COVID may 16.Will do prednisone 20 mg x 4 days10 mg x3 [id number] x 2with foodUse PPI if heart burnSL B12 EOD Chronic low back pain 27 [id number] M54.50 Has improved with Mag and hydration [id number] Wilson Benavidez DO MAIN OFFICE [address] [facility] [address] [place] [address] 08/08/2022 13:30:06 09/15/2022 10:49:55 Bipolar disorder [id number] F31.9 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) and that caused more anxiety.No SI or HIIs on DepakoteHa s a Therapist (via service net)Still waiting to see psych 06/13/22Repo rts some depression after COVIDDepak ote 500mg x1 dailyWante d to come off of it since she thought the depression was due to depakote.E xplained to her that her depression would get worse off the meds and she agreed to stay on it.she is on wait list to see psychDenie s SI or HIParticip ate in [facility] treat long COVID and if depression doesn't resolved then will start meds.F/u in 2 weeks 05/01/22fee ling great on depakoteWi ll check LFTsRespondi ng well to DepakotHow ever feels she might need increase in dose.labs were reviewed and are stable. 02/26/22St ill very hyper. Had relapse of her alcoholism and did some binge drinking.W ill start depakote. will need to check labs in 2 weeks after start of the medIs going back to AA.cont seroquel low dose at night. 12/21/21shdada has not started seroquel yet since she wants to have the energy to work. urged her to tx the aileen since it is followed by prolonged depression .pt to start at 25mg at night and stop the use if causes sever anxiety or depression discussed starting depakote and risperidon e and she will research [place] is actively looking for a psychiatri st. 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 However, she is worries about the ensuing depression . Reports some overspendi ng and poor sleep.Her psychiatri st does not accept her insurance and she has to find a new psych provider.S he is currently on clonazapam 0.5mg which she is concerned makes her drowsy and might lead to dementia in the future.The only mood stabilizer she has tried was lithium which caused fatigue and brain fog.Will start seroquel low dose.pt to slowly taper and stop clonazepam and reserve that for episodes of aileen and insomnia.W ill try to bridge the pt till she can be seen by psych which is difficult to find.She has responded well to prozac for 2 years during a cycle of depression but later on started having chest palpitatio n and possible anxiety.pt has a few friends whom she can relay on and talk about her issues.She has a therapist whom she finds helpful.No SI or HIPt to start seroquel at 25mg at night and monitor her response and increase the dose as tolerated. She feels exercise helps, as well as yoga and meditation .Daily walks in the am sunStart probiotics specifical ly geared to brain gut access.Col lagen in am.takes Mag at night.Emph asized enough sleep specially during manic phase. [address] DO MAIN OFFICE [address] [facility] [address] [place] [address] 08/27/2022 12:05:52 08/28/2022 12:08:03 Bipolar disorder [id number] F31.9 08/27/22Sta rted on prozac 10 then increased to 20 but couldn't tolerated 20Caused anxietyWen t down 10 and still was anxious and she stopped prozacHas Appt with Psych September 06 service netIs taking DepakoteSi nce will see psych soon, decided not to start any new meds till she is evaluated by psych. 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) and that caused more anxiety.No SI or HIIs on DepakoteHa s a Therapist (via service net)Still waiting to see psych 06/13/22Repo rts some depression after COVIDDepak ote 500mg x1 dailyWante d to come off of it since she thought the depression was due to depakote.E xplained to her that her depression would get worse off the meds and she agreed to stay on it.she is on wait list to see psychDenie s SI or HIParticip ate [facility] and if depression doesn't resolved then will start meds.F/u in 2 weeks 05/01/22mike ling great on depakoteWi ll check LFTsRespondi ng well to DepakotHow ever feels she might need increase in dose.labs were reviewed and are stable. 02/26/22St ill very hyper. Had relapse of her alcoholism and did some binge drinking.W ill start depakote. will need to check labs in 2 weeks after start of the medIs going back to .cont seroquel low dose at night. 12/21/21collin has not started seroquel yet since she wants to have the energy to work. urged her to tx the aileen since it is followed by prolonged depression .pt to start at 25mg at night and stop the use if causes sever anxiety or depression discussed starting depakote and risperidon e and she will research [place]col[place] is actively looking for a psychiatri st. 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 However, she is worries about the ensuing depression . Reports some overspendi ng and poor sleep.Her psychiatri st does not accept her insurance and she has to find a new psych provider.S he is currently on clonazapam 0.5mg which she is concerned makes her drowsy and might lead to dementia in the future.The only mood stabilizer she has tried was lithium which caused fatigue and brain fog.Will start seroquel low dose.pt to slowly taper and stop clonazepam and reserve that for episodes of aileen and insomnia.W ill try to bridge the pt till she can be seen by psych which is difficult to find.She has responded well to prozac for 2 years during a cycle of depression but later on started having chest palpitatio n and possible anxiety.pt has a few friends whom she can relay on and talk about her issues.She has a therapist whom she finds helpful.No SI or HIPt to start seroquel at 25mg at night and monitor her response and increase the dose as tolerated. She feels exercise helps, as well as yoga and meditation .Daily walks in the am sunStart probiotics specifical ly geared to brain gut access.Col lagen in am.takes Mag at night.Emph asized enough sleep specially during manic phase. Fatigue [id number] R53.83 Pt is told that she needs to be examinedIt might be her depression She is sleeping but not more than usualAppet ite is reducedNo cryingFeel s no joyNo SI or HIPt would like to wait to see psych before any blood work is done(06/06) TSH and CMP, lyme and CRP were WNL Seasonal allergy [id number] J30.2 Use zyrtec and flonase as needed to avoid fluid build upTreat IBD to decrease environmen chelita allergyAvo id carpets in the bed roomUse air purifier and dust around the bed weeklyUse hypoallerg enic pillow [id number] DO MAIN OFFICE [address] [facility] [address] [place] [address] 05/02/2023 11:03:42 07/16/2023 10:31:38 Active or passive immunization [id number] Z23 COVID vaccine x 3 boostersTd ap can't rememberSh ingles x 2 2020Pneumo demetrio vaccine pt will considerha s had flu vaccine in 2021 Adult heal th examination [id number] Z00.01 No GERD, no N/V/D, no blood or mucus in stool, no wt loss. no melena, no abdominal pain.No fever or wt loss or night sweats.No ALVARADO, dizziness, fall, weakness or change in vision.No hearing loss.No lumps or bumps in neck, arm pits or groinNo rashes or skin lesions.No CP or WALTERS.No cough or SOB.No back pain or joint pain.Denie s Depression but reports some anxiety which is manageable .No ETOH, pot or smokingAdv ised pt to eat less simple carbs and make sure his diet includes healthy fats and proteins and complex carbs.Advi sed use of certain supplement s such Vit D3+ K2, B12, Mag and fish oil, 2-3 times per week.Daily exercise was recommende d.Advised pt to use mineral sunscreen. SPF shirt, hats and sunglasses .Monthly breast self exam (1 week after period) was recommende d.Eye exam by [employer] once a year.Tick safety was reviewed (tick check and use of permethrin on clothing). Gynecologi c examination 71333304 Z01.419 last pap was 2 years agoNo h/o abnormal pap.In monogamous relation with male partner for the past 22Menopaus e since age 45Sexually active with male partner.De nies sexual dysfunctio n.No painful sex.No bleeding after sex.No discharge or abnormal odor. Screening for cardiovascular system disease [id number] Z13.6 Screening for malignant neoplasm of colon 170535179 Z12.11 Can't remember when was the last colonoscop yWas done [facility] and was told repeat is in 5 yearsHas not received a reminder yet. Screening mammography 24 756563 Z12.31 Has one in nd wishes to skip this yearWill do one in 2024No fhx of breast cancerDoes monthly self check Bipolar disorder [id number] 4 F31.9 05/02f/u by psych Dr Marques (service net)Off of Depakote now and on Wellbutrin only.No ETOH useNo depression or anxiety 08/27/22Sta rted on prozac 10 then increased to 20 but couldn't tolerated 20Caused anxietyWen t down 10 and still was anxious and she stopped prozacHas Appt with Psych September 06 service netIs taking DepakoteSi nce will see psych soon, decided not to start any new meds till she is evaluated by psych. 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) and that caused more anxiety.No SI or HIIs on DepakoteHa s a Therapist (via service net)Still waiting to see psych 06/13/22Repo rts some depression after COVIDDepak ote 500mg x1 dailyWante d to come off of it since she thought the depression was due to depakote.E xplained to her that her depression would get worse off the meds and she agreed to stay on it.she is on wait list to see psychDenie s SI or HIParticip ate in AAWi treat long COVID and if depression doesn't resolved then will start meds.F/u in 2 weeks 05/01/22fedada ling great on depakoteWi ll check LFTsRespondi ng well to DepakotHow ever feels she might need increase in dose.labs were reviewed and are stable. 02/26/22St ill very hyper. Had relapse of her alcoholism and did some binge drinking.W ill start depakote. will need to check labs in 2 weeks after start of the medIs going back to AA.cont seroquel low dose at night. 12/21/21collin has not started seroquel yet since she wants to have the energy to work. urged her to tx the aileen since it is followed by prolonged depression .pt to start at 25mg at night and stop the use if causes sever anxiety or depression discussed starting depakote and risperidon e and she will research thatcol[place] is actively looking for a psychiatri st. Vertigo [id number] R42 Since 2017 has had vertigo since 2017But now it is worse in the past 6 months.Has had Tinnitus since then as wellNo hearing loss.Feels more heaviness on the LHas had h/o migrainesW hen vertigo happens she tries to keep her eyes in one spot and it resolves.T akes OTC Dramamine as needed.Nev er had it worked up.unsure if barrometri c pressure effectsRef erral to ENT is placed Impacted cerumen 0032047 6 H61.21 Mass of left breast [id number] 5012504 N63.20 3x1 cm in L breast noted during annual examHas had h/o cysts in the past which was w/u including a biopsy 15 years ago which was benign.No fhx of breast cancer.Segundo hester US of L breast and b/l digital mammo Breast lump [id number] N63 .0 [id number], MAIN OFFICE [address] [facility] [address] [place] [address] 12/11/2023 12:37:46 12/17/2023 11:33:32 Basal cell carcinoma of skin 200911511 C44.91 R forearm has had a brown spot for years now has a pearly flaky center for the past 2 weeksNo change with lotion applicatio nShe hit it on the car door and now has bruise around itWill refer to derm for possible BCC Dermoid cyst 257933611 K 09.8 Has had a bump on mons pubis for 2-3 monthswas draining some thick whitish dischargeN eeds to see derm and have the inclusion sac removed [id number] DO MAIN OFFICE [address] [facility] [address] [place] [address] 04/19/2024 11:58:35 04/21/2024 16:19:11 Raynaud's disease [id number] I73.00 Has a gangrene now Ischemic f oot ulcer due to atherosclerosis of artery of lower limb 664875714 I70.25 Former smoker smoker from age 14 to age 33 but has not smoked for 30 years nowH/o ETOH abuse has been sober since 2021H/o Raynaud which was managed on low dose Amlodapine .Pt has one superficia l ulcer on 2nd R toe and the blue/ purple discolorat ion in the R big toe for the past 2 weeksFoot is cold to touch and distal pulse are somewhat diminished .Other toes have good refillDue to h/o raynaude she has had similar issues but did not last this long and resolved with few doses of calcium channel mary.Sh e has had h/o raynaud in the past which was responsive to Amlodapine Pain is 3/10 at this time but last night was 10/10Will change Amlodapine to Nifidapine will refer to to vascular since she has early gangrene as well as intensive care specialist No sign of infection at this time.She takes tylenol or advil as neededWill give oxy x 10 tab for pain >8/10willl refer to vascular surgeon and intensive care specialist since starting to have wet gangrene Gangrene o f toe of right foot [id number] 0512448 I96 No h/o DMHas had h/o EOTH abuse sober since 2021Ha h/o restless leg syndromeTa ke B -complex and mag which helpNo sign of infectionB ut will tx with silvadene till seen by vascular and intensive care specialist Health Concerns Section Related Observation LastModified by Organization Detai ls LastModified Time None Recorded Concern Status LastModified by Organization Details LastModified Time None Recorded Advance Directives Directive None Recorded Payers Insurance Date Sequence Insurance Name Policy Number Policy Velasquez Covered Member ID Velasquez Member ID Guarantor Name 05/01/2023 1 [facility] [place] [id number] Matheus Mock [id number] Matheusleon Mock 10/17/2023 1 [place] [facility] [place] Matheus Mock [id number] Matheusleon Mock 04/21/2024 1 [facility] (O) [id number] Matheusleon Mock [id number] Matheusleon Mock OBGyn Episode No OBEpisode recorded.
== END 2024-11-08 13:55 | disposition home or self-care (01) ==
LOC: HO.MAMMO 13:54
PROVIDERS: PCP Nurse Practitioner Family; Visit Provider Nurse Practitioner Family
DX: Z12.31 Encounter for screening mammogram for malignant neoplasm of breast (principal)
CPT/HCPCS: 77063; 77067

== ENCOUNTER → 2024-11-08 14:15 | Outpatient (BNV) | payer OTHER, SELFPAY | PROVIDERS: PCP Nurse Practitioner Family; Visit Provider Internal Medicine | DX: Z12.31 Encounter for screening mammogram for malignant neoplasm of breast (principal) | CPT/HCPCS: 77063; 77067 ==